=== PATIENT | male | born 1950 | race Caucasian/White ===

== ENCOUNTER → 2016-12-12 | Outpatient (CLI) | payer OTHER ==
[~2016-12-12] MED LIST: AMIO200T PO; ASPI-621 PO; ASPI-650 PO; CARV3.1212 PO; CARV6.2512 PO; CYCL-259 PO; ENOX80SY5 SQ; FLUT1DIS3 INH; FURO-93 PO; GABA300C PO; HYDR2TAB40 PO; LIDO700A5 TD; MAGN100T3 PO; METO25TA4 PO; MONT10TA6 PO; POTA10TA5 PO; SALM50DI INH; TAMS-11 PO; TELM20TA PO; WARF5TAB7 PO-COUM; WARF7.5T PO
== END | disposition home or self-care (01) ==
LOC: CFH 08:39
PROVIDERS: ATTEND Internal Medicine Cardiovascular Disease
DX: I08.1 Rheumatic disorders of both mitral and tricuspid valves (principal); I37.1 Nonrheumatic pulmonary valve insufficiency; Z95.2 Presence of prosthetic heart valve
CPT/HCPCS: 93306